=== PATIENT | male | born 1995 | race Two or more races ===

== ENCOUNTER 2016-11-12 19:06 | Emergency (ER) | payer OTHER ==
[~2016-11-12] VITALS: Ht 190.5 cm; Wt 86.2 kg
[2016-11-12 19:37] VITALS: BP 127/64
[2016-11-12] MEDS ORDERED: HYDROcodone/APAP 5/325MG 1 TAB TABLET PO ONE (20:15)
--- NOTE | 2016-11-12 20:20 | PHYS DOC ---
Past Medical History Past Medical History: No Pertinent History Past Surgical History: No Surgical History Alcohol Use: None Drug Use: None Adult General Chief Complaint Chief Complaint: FINGER INJURY [facility] HPI Patient is a 21 year old male presents presents to the emergency department stating that he fell and injured his left little finger. Patient states this happened today. He does have deformity noted. Patient does have good cap refill noted. He does have ice placed on the area. He has not taken anything for pain and discomfort. Patient is right-hand dominant. Review of Systems Review of Systems Constitutional: Denies fever or chills [] Eyes: Denies change in visual acuity, redness, or eye pain [] HENT: Denies nasal congestion or sore throat [] Respiratory: Denies cough or shortness of breath [] Cardiovascular: No additional information not addressed in HPI [] GI: Denies abdominal pain, nausea, vomiting, bloody stools or diarrhea [] : Denies dysuria or hematuria [] Musculoskeletal: Denies back pain. Deformity to left fifth finger Integument: Denies rash or skin lesions [] Neurologic: Denies headache, focal weakness or sensory changes [] Endocrine: Denies polyuria or polydipsia [] Current Medications Current Medications Current Medications Medications (Trade) Dose Ordered Sig/Felipe Start Time Stop Time Status Last Admin Dose Admin Acetaminophen/ Hydrocodone Bitart (Lortab 5/325) 2 tab 1X ONCE 11/12/16 20:15 11/12/16 20:16 DC Allergies Allergies Allergies Coded Allergies Type Severity Reaction Last Updated Verified No Known Drug Allergies 11/12/16 No Physical Exam Physical Exam Constitutional: Well developed, well nourished, no acute distress, non-toxic appearance. [] HENT: Normocephalic, atraumatic, bilateral external ears normal, oropharynx moist, no oral exudates, nose normal. [] Eyes: PERRLA, EOMI, conjunctiva normal, no discharge. [] Neck: Normal range of motion, no tenderness, supple, no stridor. [] Cardiovascular:Heart rate regular rhythm, Lungs & Thorax: No respiratory distress noted. Skin: Warm, dry, no erythema, no rash. [] Extremities: Deformity noted to the left fifth finger with tenderness, no cyanosis, no clubbing, ROM intact, no edema. No discoloration noted. He does have good cap refill. Good sensation noted. Neurologic: Alert and oriented X 3, normal motor function, normal sensory function, no focal deficits noted. [] Psychologic: Affect normal, judgement normal, mood normal. [] Current Patient Data Vital Signs Vital Signs Date Time Temp Pulse Resp B/P (MAP) Pulse Ox O2 Delivery O2 Flow Rate FiO2 11/12/16 19:37 97.7 67 20 97 Room Air 97.7 EKG EKG [] Radiology/Procedures Radiology/Procedures [] Course & Med Decision Making Course & Med Decision Making Pertinent Labs and Imaging studies reviewed. (See chart for details) X-ray was positive for dislocated left fifth finger finger. Closed reduction was performed at patient's bedside. Second x-ray identified finger in normal placement. X-rays were verified by Dr. Beckman. Patient will be placed in a aluminum splint with recommendations to follow-up with orthopedic within the next week. Recommended Tylenol or ibuprofen for pain and discomfort. Ice packs on 20 minutes off 20 minutes several times a day. Signs and symptoms to return back to emergency department as been provided. Patient agrees with discharge instructions treatment regimens and follow-up recommendations. All questions and concerns was answered at patient's bedside. [] Dragon Disclaimer Dragon Disclaimer This electronic medical record was generated, in whole or in part, using a voice recognition dictation system. Departure Departure Impression: Primary Impression: Dislocation, finger closed Disposition: 01 HOME, SELF-CARE Condition: STABLE Referrals: AISHWARYA KYLE II, MD Patient Instructions: Finger Dislocation, [id number] Additional Instructions: Activity as tolerated. Tylenol or ibuprofen for pain and discomfort. Wear the aluminum splint for the next week. Ice packs on 20 minutes off 20 minutes several times a day. Elevation as much as possible. Follow-up with orthopedic within the next week. Return back to emergency prior signs symptoms of become worse. Problem Qualifiers Primary Impression: Dislocation, finger closed Encounter type: initial encounter Qualified Codes: S63.259A - Unspecified dislocation of unspecified finger, initial encounter KWASI CANELA [employer]OUNT [employer]INTENA[employer]CE REPRESENTATIVE Nov 12, 2016 20:20
--- NOTE | 2016-11-13 08:20 | RAD ---
Left little finger, 3 views, 11/12/2016: History: Injury There is dislocation of the little finger at the PIP joint. The middle phalanx is displaced in the posterior and ulnar direction. No underlying fracture is seen. IMPRESSION: Dislocation of the left little finger at the PIP joint.
--- NOTE | 2016-11-13 08:21 | RAD ---
Left little finger, 11/12/2016, 8:57 PM: History: Postreduction evaluation Comparison is made to the study of earlier the same day. The little finger dislocation has been reduced. Bony alignment is now anatomic. No fracture is identified. There is mild soft tissue swelling at the PIP level. IMPRESSION: Satisfactory reduction of the left little finger dislocation.
== END 2016-11-12 21:20 | disposition home or self-care (01) ==
LOC: ER 19:06
DX: S63.277A Dislocation of unspecified interphalangeal joint of left little finger, initial encounter (principal); W18.39XA Other fall on same level, initial encounter; Y93.89 Activity, other specified; Y92.89 Other specified places as the place of occurrence of the external cause; Y99.8 Other external cause status
CPT/HCPCS: 26700; 26770; 73140; 99284-25